=== PATIENT | female | born 2000 | race Caucasian/White ===

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

== ENCOUNTER 2018-05-21 23:10 | Emergency (ER) | payer MEDICAID, OTHER ==
[2018-05-21 23:12] VITALS: BMI 20.5
== END 2018-05-22 00:13 | disposition left against medical advice (07) ==
LOC: ED 23:10
DX: Z02.89 Encounter for other administrative examinations (principal); M25.473 Effusion, unspecified ankle